=== PATIENT | male | born 1950 | race Caucasian/White ===

== ENCOUNTER 2019-08-20 18:25 | Emergency (ER) | payer MEDICARE, BC ==
[~2019-08-20] VITALS: Ht 177.8 cm; Wt 84.1 kg
[2019-08-20] MEDS ORDERED: oxyCODONE/APAP 10/325mg tablet PO ONE ×2 (20:30→21:55)
[2019-08-20] MEDS ORDERED: ketorolac tromethamine 15mg/ml inj. IM ONE (20:30)
[2019-08-20] MEDS ORDERED: OXYC-145 PO (21:43)
[2019-08-20 22:14] VITALS: BP 149/77
== END 2019-08-20 22:15 | disposition home or self-care (01) ==
LOC: ER 18:26
DX: C90.00 Multiple myeloma not having achieved remission (principal); R22.2 Localized swelling, mass and lump, trunk; E11.9 Type 2 diabetes mellitus without complications; Z79.899 Other long term (current) drug therapy
CPT/HCPCS: 71250; 96372; 99284; J1885

== ENCOUNTER 2020-05-04 12:12 | Emergency (ER) | payer MEDICARE, BC ==
[~2020-05-04] VITALS: Ht 177.8 cm; Wt 81.8 kg
[~2020-05-04 12:12] MED LIST: OXYC-145 PO
[2020-05-04] MEDS ORDERED: LIDOcaine 1% 30ml preserv. free vial IJ ONE (13:20)
[2020-05-04] MEDS ORDERED: TETanus/Pertussis (Acell)/Diphther VAC/PF (Tdap-Adult) 0.5ml syringe IMVAC ONE (13:20)
[2020-05-04] MEDS ORDERED: ceFAZolin 1gm IM kit IM ONE (13:55)
[2020-05-04] MEDS ORDERED: AMOX-422 PO (15:53)
[2020-05-04 16:06] VITALS: BP 139/75
== END 2020-05-04 16:03 | disposition home or self-care (01) ==
LOC: ER 12:13
DX: S61.211A Laceration without foreign body of left index finger without damage to nail, initial encounter (principal); D64.9 Anemia, unspecified; E11.9 Type 2 diabetes mellitus without complications; Z79.899 Other long term (current) drug therapy; W26.8XXA Contact with other sharp object(s), not elsewhere classified, initial encounter; Y93.89 Activity, other specified; Y92.89 Other specified places as the place of occurrence of the external cause; Y99.8 Other external cause status
CPT/HCPCS: 12001; 73140; 90471; 90715; 96372; 99284; J0690

== ENCOUNTER 2020-08-23 17:50 | Emergency (ER) | payer MEDICARE, BC ==
[~2020-08-23] VITALS: Ht 177.8 cm; Wt 78.2 kg
[2020-08-23] MEDS ORDERED: HYDROcodone/acetaminophen 5mg/325mg tablet PO ONE (18:10)
[2020-08-23] MEDS ORDERED: LORazepam 1 MG tablet PO ONE (18:10)
[2020-08-23] MEDS ORDERED: normal saline 1000ML IV soln IVB ONE (19:30)
[2020-08-23] MEDS ORDERED: ondansetron/PF 4mg/2ml inj IV ONE (19:30)
[2020-08-23] MEDS: morphine 4 MG/ML inj SYRINge IV PRN ×2 (20:04→23:12)
[2020-08-23 20:10] LABS: BASOPHILS % (AUTO) 0.6 % (0-1); EOSINOPHILS % (AUTO) 0 % (0-6); HEMATOCRIT 25.7 % (42.0-52.0); HEMOGLOBIN 9.2 g/dl (14.0-17.9); LYMPHOCYTES # (AUTO) 0.4 X10'3 (1.1-4.8); LYMPHOCYTES % (AUTO) 21.1 % (21-51); MEAN CORPUSCULAR HEMOGLOBIN 38.3 PG (27.0-31.0); MEAN CORPUSCULAR HGB CONC 35.8 g/dL (33.0-36.5); MEAN CORPUSCULAR VOLUME 106.9 FL (78-98); MEAN PLATELET VOLUME 7.6 FL (7.4-10.4); MONOCYTES # (AUTO) 0.1 X10'3 (0-0.9); MONOCYTES % (AUTO) 5.1 % (2-12); NEUTROPHILS # (AUTO) 1.4 X10'3 (1.8-7.7); NEUTROPHILS % (AUTO) 73.2 % (42-75)
[2020-08-23 20:35] LABS: PLATELET COUNT 50 X10'3 (140-440)
[2020-08-23 20:36] LABS: ALANINE AMINOTRANSFERASE 18 U/L (12-78); ALBUMIN 3.4 G/DL (3.4-5.0); ALKALINE PHOSPHATASE 29 IU/L (46-116); ANION GAP 12 (8-16); ASPARTATE AMINO TRANSFERASE 10 U/L (10-37); BILIRUBIN,TOTAL 1.9 MG/DL (0.1-1.0); BLOOD UREA NITROGEN 25 MG/DL (7-18); BUN/CREATININE RATIO 27.2 (5.4-32.0); CALCIUM 7.9 MG/DL (8.5-10.1); CHLORIDE 96 MMOL/L (99-107); CREATININE 0.92 MG/DL (0.60-1.10); GLUCOSE 99 MG/DL (70-104); MAGNESIUM 2.1 MG/DL (1.5-2.4); SODIUM 130 MMOL/L (135-145); TOTAL CARBON DIOXIDE 21.6 MMOL/L (24-32); TOTAL PROTEIN 6.8 G/DL (6.4-8.2); eGFR 82 ML/MIN
[2020-08-23 20:42] LABS: POTASSIUM 2.7 MMOL/L (3.5-5.1)
[2020-08-23] MEDS ORDERED: iohexol 350MG/ML 100ml bottle IV ONE (20:44)
[2020-08-23] MEDS ORDERED: potassium Cl 20 mEq SR tablet PO STA (20:53)
[2020-08-23] MEDS: potassium CL 10mEq/100ml bag 100 ML IV SCH ×2 (22:14→23:16)
[2020-08-23 22:33] LABS: ANISOCYTOSIS 1+; PLATELET ESTIMATE DECREASED; TOTAL CELLS COUNTED 100
[2020-08-23 22:34] LABS: TEAR DROP CELLS FEW
[2020-08-24 00:05] VITALS: BP 104/50
== END 2020-08-24 00:13 | disposition home or self-care (01) ==
LOC: ER 17:50
DX: E87.6 Hypokalemia (principal); E87.1 Hypo-osmolality and hyponatremia; E86.0 Dehydration; F41.9 Anxiety disorder, unspecified; C90.00 Multiple myeloma not having achieved remission; E11.9 Type 2 diabetes mellitus without complications; Z86.2 Personal history of diseases of the blood and blood-forming organs and certain disorders involving the immune mechanism; Z79.899 Other long term (current) drug therapy
CPT/HCPCS: 36415; 71045; 71275; 80053; 83735; 83880; 84484; 85007; 85025; 93005; 96365; 96366; 96375; 99285; J2270; J2405; J3480; J7030; Q9967

== ENCOUNTER 2021-03-12 11:37 | Emergency (ER) | payer MEDICARE, BC ==
[~2021-03-12] VITALS: Ht 177.8 cm; Wt 78.0 kg
[2021-03-12 12:24] LABS: BASOPHILS % (AUTO) 0.1 % (0-1); EOSINOPHILS # (AUTO) 0.1 X10'3 (0-0.9); EOSINOPHILS % (AUTO) 2.3 % (0-6); HEMATOCRIT 23.2 % (42.0-52.0); HEMOGLOBIN 7.9 g/dl (14.0-17.9); LYMPHOCYTES # (AUTO) 0.2 X10'3 (1.1-4.8); LYMPHOCYTES % (AUTO) 4.7 % (21-51); MEAN CORPUSCULAR HEMOGLOBIN 35.8 PG (27.0-31.0); MEAN CORPUSCULAR HGB CONC 34.1 g/dL (33.0-36.5); MEAN CORPUSCULAR VOLUME 105.1 FL (78-98); MEAN PLATELET VOLUME 7.8 FL (7.4-10.4); MONOCYTES # (AUTO) 0.2 X10'3 (0-0.9); MONOCYTES % (AUTO) 4.2 % (2-12); NEUTROPHILS # (AUTO) 3.3 X10'3 (1.8-7.7); NEUTROPHILS % (AUTO) 88.7 % (42-75); PLATELET COUNT 106 X10'3 (140-440); RED BLOOD COUNT 2.21 X10'6 (4.70-6.10); RED CELL DISTRIBUTION WIDTH 28.2 % (11.5-14.5); WHITE BLOOD COUNT 3.7 X10'3 (4.5-11.0)
[2021-03-12 12:36] LABS: ALANINE AMINOTRANSFERASE 17 U/L (12-78); ALBUMIN 2.6 G/DL (3.4-5.0); ALBUMIN/GLOBULIN RATIO 0.3 (1.1-1.5); ALKALINE PHOSPHATASE 47 IU/L (46-116); ANION GAP 3 (8-16); ASPARTATE AMINO TRANSFERASE 8 U/L (10-37); BILIRUBIN,TOTAL 0.8 MG/DL (0.1-1.0); BLOOD UREA NITROGEN 21 MG/DL (7-18); BUN/CREATININE RATIO 14.8 (5.4-32.0); CALCIUM 8.5 MG/DL (8.5-10.1); CHLORIDE 105 MMOL/L (99-107); CREATININE 1.42 MG/DL (0.60-1.10); GLUCOSE 140 MG/DL (70-104); POTASSIUM 3.2 MMOL/L (3.5-5.1); SODIUM 136 MMOL/L (135-145); TOTAL CARBON DIOXIDE 27.7 MMOL/L (24-32); TOTAL PROTEIN 11.1 G/DL (6.4-8.2); eGFR 50 ML/MIN
[2021-03-12 13:15] LABS: ANISOCYTOSIS 3+; PLATELET ESTIMATE DECREASED; TEAR DROP CELLS 1+
[2021-03-12 13:16] LABS: POLYCHROMASIA 1+
--- NOTE | 2021-03-12 13:28 | NUR ---
LAB CALLED TO SAY 2 UNITS OF BLOOD PRODUCT IS READY TO VOCATIONAL NURSE LVN
[2021-03-12] MEDS ORDERED: POTASSIUM BICARB 20meq eff tab 20 MEQ TABLET.EFF PO ONE ×2 (13:35)
[2021-03-12 14:00] VITALS: BP 134/61
== END 2021-03-12 14:10 | disposition home or self-care (01) ==
LOC: ER 11:37
DX: E87.6 Hypokalemia (principal); F41.9 Anxiety disorder, unspecified; E87.1 Hypo-osmolality and hyponatremia; D64.9 Anemia, unspecified; C90.00 Multiple myeloma not having achieved remission; R53.1 Weakness; E11.9 Type 2 diabetes mellitus without complications; Z86.2 Personal history of diseases of the blood and blood-forming organs and certain disorders involving the immune mechanism; Z85.9 Personal history of malignant neoplasm, unspecified; Z79.899 Other long term (current) drug therapy
CPT/HCPCS: 36415; 71045; 80053; 85008; 85025; 86885; 86900; 86901; 86920; 93005; 99285